=== PATIENT | male | born 1990 | race African-American/Black ===

== ENCOUNTER 2016-11-29 01:35 | Emergency (ER) | payer SELFPAY ==
[~2016-11-29] VITALS: Ht 167.6 cm; Wt 85.0 kg
[2016-11-29 01:37] VITALS: BP 150/83; PULSE 62; RESP 18; TEMP 98.6; O2SAT 100
[2016-11-29] MEDS ORDERED: ONDANSETRON HCL 4 MG/2 ML VIAL ONE (02:21)
[2016-11-29] MEDS ORDERED: SODIUM CHLOR 0.9% 1000 ML INJ 1,000 ML IV SCH (02:27)
[2016-11-29] MEDS ORDERED: KETOROLAC TROMETHAMINE 30 MG/ML (IVP) VIAL IV PUSH ONE (02:30)
[2016-11-29] MEDS ORDERED: ONDANSETRON HCL 4 MG/2 ML VIAL IV PUSH ONE (02:30)
[2016-11-29] MEDS ORDERED: SODIUM CHLORIDE 0.9% FLUSH 10 ML FLUSH IV FLUSH PRN (02:30)
--- NOTE | 2016-11-29 02:31 | PD ---
HPI Chief Complaint: Flank/Kidney Pain Time Seen by Provider: 02:23 Travel History International Travel<30 days: No Contact w/Intl Traveler<30days: No Traveled to known affect area: No History of Present Illness HPI 26-year-old male here for evaluation of left flank pain, nausea, vomiting, and hematuria. Symptoms started about 2 hours prior to arrival. Pain radiates to his left lower abdomen. Patient reports significant pain, and has never had similar pain in the past. No fevers or chills. PFSH Past Medical History Cardiovascular Problems: Yes (UNKNOWN HEART PROBLEM A KID) Immunizations Current: Yes Tetanus Vaccination: < 5 Years Past Surgical History Surgical History: No Previous Surgery Social History Alcohol Use: Yes Tobacco Use: Yes Substance Use: Yes (marijuana) Allergies-Medications (Allergen,Severity, Reaction): Coded Allergies: No Known Allergies (Unverified , 11/29/16) Reported Meds & Prescriptions Reported Meds & Active Scripts Active No Active Prescriptions or Reported Medications Review of Systems Except as stated in HPI: all other systems reviewed are Neg Physical Exam Narrative GENERAL: Well-developed, well-nourished, vomiting into an emesis bag SKIN: Focused skin assessment warm/dry. No rash. HEAD: Atraumatic. Normocephalic. EYES: Pupils equal and round. No scleral icterus. No injection or drainage. ENT: Mucous membranes pink and moist. NECK: Trachea midline. No JVD. CARDIOVASCULAR: Regular rate and rhythm. No murmur appreciated. RESPIRATORY: No accessory muscle use. Clear to auscultation. Breath sounds equal bilaterally. GASTROINTESTINAL: Abdomen soft, non-tender, nondistended. MUSCULOSKELETAL: No obvious deformities. No clubbing. No cyanosis. No edema. Moderate left CVA tenderness. No right CVA tenderness. No midline vertebral step-off or tenderness. NEUROLOGICAL: Awake and alert. No obvious cranial nerve deficits. Motor grossly within normal limits. Normal speech. PSYCHIATRIC: Appropriate mood and affect; insight and judgment normal. Data Data Last Documented VS Vital Signs Date Time Temp Pulse Resp B/P Pulse Ox O2 Delivery O2 Flow Rate FiO2 11/29/16 02:36 60 18 144/91 99 Room Air 11/29/16 01:37 98.6 Orders Ondansetron Inj (Zofran Inj) (11/29/16 02:21) Complete Blood Count With Diff (11/29/16 02:27) Comprehensive Metabolic Panel (11/29/16 02:27) Lipase (11/29/16 02:27) Prothrombin Time / Inr (Pt) (11/29/16 02:27) Act Partial Throm Time (Ptt) (11/29/16 02:27) Urinalysis - C+S If Indicated (11/29/16 02:27) Ct Abd/Pel W/O Iv Contrast (11/29/16 02:27) Iv Access Insert/Monitor (11/29/16 02:27) Ecg Monitoring (11/29/16 02:27) Oximetry (11/29/16 02:27) Sodium Chlor 0.9% 1000 Ml Inj (Ns 1000 M (11/29/16 02:27) Sodium Chloride 0.9% Flush (Ns Flush) (11/29/16 02:30) Creatine Kinase (Cpk) (11/29/16 02:27) Ketorolac Inj (Toradol Inj) (11/29/16 02:30) Ondansetron Inj (Zofran Inj) (11/29/16 02:30) Urine Culture (11/29/16 02:30) Tamsulosin (Flomax) (11/29/16 03:15) Ceftriaxone Inj (Rocephin Inj) (11/29/16 03:45) Labs Laboratory Tests Test 11/29/16 02:30 White Blood Count 10.3 TH/MM3 Red Blood Count 4.51 MIL/MM3 Hemoglobin 14.3 GM/DL Hematocrit 41.2 % Mean Corpuscular Volume 91.4 FL Mean Corpuscular Hemoglobin 31.8 PG Mean Corpuscular Hemoglobin 34.8 % Concent Red Cell Distribution Width 13.4 % Platelet Count 202 TH/MM3 Mean Platelet Volume 7.7 FL Neutrophils (%) (Auto) 74.5 % Lymphocytes (%) (Auto) 17.1 % Monocytes (%) (Auto) 6.4 % Eosinophils (%) (Auto) 1.5 % Basophils (%) (Auto) 0.5 % Neutrophils # (Auto) 7.7 TH/MM3 Lymphocytes # (Auto) 1.8 TH/MM3 Monocytes # (Auto) 0.7 TH/MM3 Eosinophils # (Auto) 0.2 TH/MM3 Basophils # (Auto) 0.0 TH/MM3 CBC Comment DIFF FINAL Differential Comment Prothrombin Time 11.4 SEC Prothromb Time International 1.0 RATIO Ratio Activated Partial 23.3 SEC Thromboplast Time Urine Color BROWN Urine Turbidity TURBID Urine pH 6.5 Urine Specific [place] 1.028 Urine Protein 30 mg/dL Urine Glucose (UA) NEG mg/dL Urine Ketones NEG mg/dL Urine Occult Blood LARGE Urine Nitrite NEG Urine Bilirubin NEG Urine Urobilinogen 2.0 MG/DL Urine Leukocyte Esterase NEG Urine RBC /hpf Urine WBC 31 /hpf Urine Hyaline Casts 16 /lpf Urine Mucus MANY /lpf Microscopic Urinalysis Comment CULTURE INDICATED Sodium Level 141 MEQ/L Potassium Level 4.1 MEQ/L Chloride Level 105 MEQ/L Carbon Dioxide Level 28.7 MEQ/L Anion Gap 7 MEQ/L Blood Urea Nitrogen 10 MG/DL Creatinine 1.12 MG/DL Estimat Glomerular Filtration 98 ML/MIN Rate Random Glucose 138 MG/DL Calcium Level 8.5 MG/DL Total Bilirubin 0.4 MG/DL Aspartate Amino Transf 25 U/L (AST/SGOT) Alanine Aminotransferase 25 U/L (ALT/SGPT) Alkaline Phosphatase 69 U/L Total Creatine Kinase 185 U/L Total Protein 7.5 GM/DL Albumin 4.0 GM/DL Lipase 160 U/L MDM Medical Decision Making Medical Screen Exam Complete: Yes Emergency Medical Condition: Yes Differential Diagnosis Nephrolithiasis, ureterolithiasis, UTI, cystitis, pyelonephritis, nephritis, colitis, diverticulitis Narrative Course Vital signs show heart rate cc 2, blood pressure 150/83, pulse ox 100% on room air, oral temp of 98.6F. CBC shows WBC 10.3, hemoglobin 14.3, hematocrit 41.2, platelets 202. CMP is remarkable for random glucose 138, otherwise unremarkable. Lipase is 160. UA shows large occult blood, 30 protein, innumerable rbc's, 31 wbc's, 16 hyalin casts, many mucus. Negative nitrites, negative leukocyte esterase. Elevated WBCs is likely secondary to inflammatory response from passing kidney stone. I do not believe this represents UTI, however the patient was given a dose of Rocephin. CT abdomen pelvis: CONCLUSION: 1. Mild left hydronephrosis secondary to an obstructing 3.5 mm left proximal ureteral calculus. Patient was given IV Zofran and IV Toradol with significant improvement in pain and nausea. He was made aware of all findings and is resting comfortably on reassessment. He was given a dose of Flomax as well as IV Rocephin. At this point he is stable for discharge home with outpatient follow-up with a urologist this week. He will be discharged home with a prescription for pain medication, Zofran, and Flomax. He will also be given a urine strainer. He was informed on when to return to the emergency department. He verbalizes understanding and agreement with plan. Diagnosis Primary Impression: Ureterolithiasis Referrals: Gerry Mejia DO 3 days Additional Instructions: Follow-up with urologist Dr. Mejia or urologist of your choice this week. Return to the emergency department for worsening symptoms or any other concerns. Scripts Ondansetron Odt (Zofran Odt)4 Mg Tab4 Mg SL Q6HR PRN (Nausea/Vomiting) #20 TAB Ref 0 Prov:Ben Feliciano MD 11/29/16 Nitrofurantoin Monohydrate Macrocrystals (Macrobid)100 Mg [id number] Mg PO BID 5 Days Ref 0 Prov:Ben Feliciano MD 11/29/16 Tamsulosin (Flomax)0.4 Mg Cap0.4 Mg PO HS #14 CAP Ref 0 Prov:Ben Feliciano MD 11/29/16 Hydrocodone-Acetaminophen (Lortab)5-325 Mg Tab1 Tab PO Q6H PRN (PAIN) #10 TAB Ref 0 Prov:Ben Feliciano MD 11/29/16 Disposition: 01 DISCHARGE HOME Condition: Stable Ben Feliciano MD Nov 29, 2016 02:30
[2016-11-29 02:36] VITALS: BP 144/91; PULSE 60; RESP 18; O2SAT 99
[2016-11-29 02:49] LABS: AUTOMATED NEUTROPHIL # 7.7 TH/MM3 (1.8-7.7); BASOPHIL % 0.5 % (0.0-2.0); EOSINOPHIL # 0.2 TH/MM3 (0-0.4); EOSINOPHIL % 1.5 % (0.0-4.0); HEMATOCRIT 41.2 % (39.0-51.0); HEMO FLAGS DIFF FINAL; LYMPH % 17.1 % (9.0-44.0); LYMPHOCYTE # 1.8 TH/MM3 (1.0-4.8); MEAN CELL VOLUME 91.4 FL (80.0-100.0); MEAN CORPUSCULAR HEMOGLOBIN 31.8 PG (27.0-34.0); MEAN CORPUSCULAR HGB CONC 34.8 % (32.0-36.0); MONO % 6.4 % (0.0-8.0); NEUT % 74.5 % (16.0-70.0); PLATELET COUNT 202 TH/MM3 (150-450); RED BLOOD COUNT 4.51 MIL/MM3 (4.50-5.90); RED CELL DISTRIBUTION WIDTH 13.4 % (11.6-17.2); WHITE BLOOD COUNT 10.3 TH/MM3 (4.0-11.0)
[2016-11-29 02:59] LABS: APTT (PATIENT) 23.3 SEC (24.3-30.1); PROTHROMBIN TIME - PATIENT 11.4 SEC (9.8-11.6)
[2016-11-29 03:07] LABS: BLOOD, URINE LARGE (NEG); COMMENT (UR) CULTURE INDICATED; CULTURE IF INDICATED CULTURE INDICATED; GLUCOSE,URINE NEG (NEG); HYALINE CAST, URINE 16 /lpf (RARE); KETONE, URINE NEG (NEG); MUCUS URINE MANY /lpf (OCC); NITRITE,URINE NEG (NEG); PH, URINE 6.5 (5.0-8.5)
--- NOTE | 2016-11-29 03:07 | RADRPT ---
EXAM DATE/TIME: 11/29/2016 02:50 [facility] COMPARISON: No previous studies available for comparison. INDICATIONS : Left flank pain. ORAL CONTRAST: No oral contrast ingested. RADIATION DOSE: 6.47 CTDIvol (mGy) MEDICAL HISTORY : None SURGICAL HISTORY : None. ENCOUNTER: Initial ACUITY: 1 day PAIN SCALE: 10/10 LOCATION: Left flank TECHNIQUE: Volumetric scanning of the abdomen and pelvis was performed. Using automated exposure control and ad justment of the mA and/or kV according to patient size, radiation dose was kept as low as reasonably achievable to obtain optimal diagnostic quality images. DICOM format image data is available electro nically for review and comparison. FINDINGS: Liver, spleen, pancreas, adrenals, right kidney, gallbladder unremarkable. There is mild hydronephros is of the left kidney identified. There is a left proximal ureteral calculus measuring 3.5 mm on axia l image 64 at the level of L3-4. Urinary bladder, prostate unremarkable. Small bowel and large bowel, stomach and appendix are normal. No adenopathy or aneurysm. Lung bases are clear. Osseous structures are intact. CONCLUSION: 1. Mild left hydronephrosis secondary to an obstructing 3.5 mm left proximal ureteral calculus. Acosta Winston MD on November 29, 2016 at 3:02 Board Certified Radiologist. This report was verified electronically.
[2016-11-29 03:08] LABS: URINE COLOR BROWN (YELLW/STRAW)
[2016-11-29 03:14] LABS: ALKALINE PHOSPHATASE 69 U/L (45-117); ALT (GPT) 25 U/L (12-78); ANION GAP 7 MEQ/L (5-15); AST (GOT) 25 U/L (15-37); BICARBONATE 28.7 MEQ/L (21.0-32.0); BLOOD UREA NITROGEN 10 MG/DL (7-18); CHLORIDE 105 MEQ/L (98-107); CREATINE KINASE 185 U/L (39-308); GLOMERULAR FILTRATION RATE 98 ML/MIN (>89); POTASSIUM 4.1 MEQ/L (3.5-5.1); SODIUM (NA) 141 MEQ/L (136-145); TOTAL BILIRUBIN ADULT 0.4 MG/DL (0.2-1.0)
[2016-11-29] MEDS ORDERED: TAMSULOSIN HCL 0.4 MG CAP PO ONE (03:15)
[2016-11-29] MEDS ORDERED: ZOFR4TAB3 SL (03:35)
[2016-11-29] MEDS ORDERED: MACR100C2 PO (03:35)
[2016-11-29] MEDS ORDERED: TAMS5CAP PO (03:35)
[2016-11-29] MEDS ORDERED: HYDR-3533 PO (03:35)
[2016-11-29] MEDS ORDERED: cefTRIAXone INJ 1,000 MG in SODIUM CHLORIDE 0.9% INJ 100 ML IV ONE (03:45)
== END 2016-11-29 05:57 | disposition home or self-care (01) ==
LOC: NEPC 01:35
DX: N20.1 Calculus of ureter (principal); N13.2 Hydronephrosis with renal and ureteral calculous obstruction; R11.2 Nausea with vomiting, unspecified; Z72.0 Tobacco use
CPT/HCPCS: 74176; 80053; 81001; 82550; 83690; 85025; 85610; 85730; 87086; 96361; 96365; 96375; 99285; J0696; J1885; J2405; J7030